=== PATIENT | male | born 1945 | race Native Hawaiian/Other Pacific Islander ===

== ENCOUNTER 2018-03-31 14:24 | Inpatient (IN) | payer OTHER ==
[2018-03-31 14:31] VITALS: BMI 27.7
[2018-03-31 15:26] VITALS: RESP 20
[2018-03-31] MEDS ORDERED: Tuberculin 5 Units/0.1 ml Inj ID ONE (16:08)
--- NOTE | 2018-03-31 17:49 | CP.PCM.HP ---
History of Present Illness - History of Present Illness History of Present Illness: 72 YO M w/ PMH of HTN, GERD, Erectile dysfunction was transfered from [facility] for rehabilitation. Patient had presented to [facility] on after he started feeling unsteady with the room spinining with the feeling he was going to fall. He would have to walk with support and hold on to something to avoid falling. 2 days before symptoms began he had started taking cialis 3-4 hours after he took his blood pressure medication. - He was thoroughly worked up at [facility] and seen by Neurology and ENT. - Had Carotid doppler: Duplex scan did not suggest hemodynamically significant stenosis bilateral - MRI brain w/o contrast: No mass-effect or cytotoxic edema throughout the brain. [id number] age-related neuro degenerative findings are appreciate throughout the cerebrum - Head MRA: Unremarkable - Neck MRA: Unremarkable - Patient states he is feeling better however stills feels unsteady when he walks and requires support. Denies any chest pain, SOB, N/V/D PMD: HTN, GERD, ED, HLD PSH: Cataract surg 2014 Allergy: NKDA FH: Denies SH: 5 cig per day x 30 years, 3 drinks daily Full code Present on Admission - Present on Admission Any Indicators Present on Admission: No Past Patient History - Past Medical History & Family History Past Medical History?: Yes - Past Social History Smoking Status: Light Smoker < 10 Cigarettes Daily - CARDIAC Hx Hypercholesterolemia: Yes Hx Hypertension: Yes Other/Comment: hyperlipidemia - NEUROLOGICAL Hx Neurological Disorder: Yes Hx Dizziness: Yes Hx Vertigo: Yes - HEENT Hx Cataracts: Yes (cataracts sx 2014) - HEMATOLOGICAL/ONCOLOGICAL Hx AIDS: No Hx Human Immunodeficiency Virus (HIV): No - MUSCULOSKELETAL/RHEUMATOLOGICAL Hx Falls: No - GASTROINTESTINAL Hx Gastrointestinal Disorders: Yes Hx Gastroesophageal Reflux: Yes - PSYCHIATRIC Hx Substance Use: No - SURGICAL HISTORY Hx Surgeries: No - ANESTHESIA Hx Anesthesia: No Hx Anesthesia Reactions: No Hx Malignant Hyperthermia: No Meds Allergies/Adverse Reactions: Allergies Allergy/AdvReac Type Severity Reaction Status Date / Time No Known Allergies Allergy Verified 03/31/18 14:30 Physical Exam - Constitutional Appears: No Acute Distress - Head Exam Head Exam: NORMAL INSPECTION - ENT Exam ENT Exam: Mucous Membranes Moist - Neck Exam Neck exam: Positive for: Normal Inspection - Respiratory Exam Respiratory Exam: Clear to Auscultation Bilateral, NORMAL BREATHING PATTERN. absent: Rhonchi, Wheezes - Cardiovascular Exam Cardiovascular Exam: REGULAR RHYTHM, +S1, +S2 - GI/Abdominal Exam GI & Abdominal Exam: Normal Bowel Sounds, Soft. absent: Tenderness - Neurological Exam Neurological exam: Abnormal Gait (unstable gait: Magnetic gait), Alert, CN II- XII Intact, Oriented x3 Additional comments: Became lightheaded while doing [place] however not lateralized to any specific side - DTR 2+ B/L - Motor : 5+ B/U upper and lower extremities - Sensation intact Results - Vital Signs Recent Vital Signs: Last Vital Signs Temp Pulse 87 03/31/18 14:39 Resp 20 03/31/18 14:39 BP Pulse Ox Assessment & Plan - Assessment and Plan (Free Text) Assessment: 72 year old male with a PMHx of HTN, GERD, ED, HLD who is being transfered from [facility] for sub acute rehab for his difficulty with ambulation. 1) Gait impairment most likely secondary to BPPV - Pt had significant relief w/ BPPV tx holland tristan at [facility] - Neuro had recommended patient have outpatient EMG/ Nerve conduction study - PT/OT, Vestibular rehab - Medications: Meclizine 25mg PO BID, Valium 2mg PO Q12H PRN 2) HTN - C/W home meds 3) HLD - Crestor, ASA 4) DVT prophylaxis Lovenox 40 SC
[2018-04-01 06:38] LABS: HEMOGLOBIN 16.2 g/dL (12.0-18.0); MEAN CELL VOLUME 100.5 fl (80.0-94.0); MEAN CORPUSCULAR HEMOGLOBIN 34.8 pg (27.0-31.0); MEAN CORPUSCULAR HGB CONC 34.6 g/dL (33.0-37.0); RBC 4.65 Mil/uL (4.40-5.90); RED CELL DISTRIBUTION WIDTH 12.6 % (11.5-14.5); WHITE BLOOD COUNT 5.9 K/uL (4.8-10.8)
[2018-04-01 06:57] LABS: ALBUMIN 4.4 g/dL (3.5-5.0); CALCIUM 10.1 mg/dL (8.4-10.2)
[2018-04-01] MEDS: Enoxaparin 40 mg Syringe SC SCH (08:05)
[2018-04-01] MEDS ORDERED: VALSARTAN HCTZ PO SCH (09:00)
[2018-04-01 09:29] LABS: T4 9.46 ug/dl (5.5-11.0)
--- NOTE | 2018-04-01 12:25 | CP.PCM.PN ---
Subjective - Date & Time of Evaluation Date of Evaluation: 04/01/18 Time of Evaluation: 09:00 - Subjective Subjective: Patient seen and examined this morning at bedside. NAD, no acute event overnight. Patient reports spinning sensations with postural changes denies any nausea or vomiting. Had BM this morning, tolerating PO, AAOx3. Denies chest pain , palpitations, blurred vision, abdominal pain or urinary symptoms. Objective - Vital Signs/Intake and Output Vital Signs (last 24 hours): Temp Pulse Resp BP Pulse Ox 97.6 F 73 20 121/66 98 04/01/18 08:29 04/01/18 08:29 04/01/18 08:29 04/01/18 08:29 04/01/18 08:29 - Medications Medications: Current Medications Acetaminophen (Tylenol 325mg Tab) 650 mg PO Q6 PRN PRN Reason: Pain, moderate (4-7) Amlodipine Besylate (Norvasc) 5 mg PO DAILY [facility] Last Admin: 04/01/18 08:04 Dose: 5 mg Aspirin (Aspirin Chewable) 81 mg PO DAILY [facility] Last Admin: 04/01/18 08:04 Dose: 81 mg Atorvastatin Calcium (Lipitor) 20 mg PO HS [facility] Last Admin: 03/31/18 21:27 Dose: 20 mg Diazepam (Valium) 2 mg PO Q12 PRN PRN Reason: Dizziness Enoxaparin Sodium (Lovenox) 40 mg SC DAILY [facility] PRN Reason: Protocol Last Admin: 04/01/18 08:05 Dose: 40 mg Hydrochlorothiazide (Microzide) 12.5 mg PO DAILY [facility] Last Admin: 04/01/18 08:04 Dose: 12.5 mg Lactated Ringer's (Lactated Ringer's) 1,000 mls @ 999 mls/hr IV .Q1H1M [facility] Meclizine HCl (Antivert) 25 mg PO BID [facility] Last Admin: 04/01/18 08:04 Dose: 25 mg Nicotine (Nicoderm Cq) 1 patch TD DAILY [facility] Last Admin: 04/01/18 09:50 Dose: 1 patch Valsartan (Diovan) 160 mg PO DAILY [facility] Last Admin: 04/01/18 08:04 Dose: 160 mg - Labs Labs: 04/01/18 05:50 04/01/18 05:50 - Constitutional Appears: No Acute Distress - Head Exam Head Exam: NORMAL INSPECTION - Eye Exam Eye Exam: Normal appearance Pupil Exam: NORMAL ACCOMODATION - ENT Exam ENT Exam: Mucous Membranes Moist - Neck Exam Neck Exam: Normal Inspection - Respiratory Exam Respiratory Exam: Clear to Ausculation Bilateral, NORMAL BREATHING PATTERN - Cardiovascular Exam Cardiovascular Exam: REGULAR RHYTHM, +S1, +S2 - GI/Abdominal Exam GI & Abdominal Exam: Soft, Normal Bowel Sounds. absent: Tenderness - Extremities Exam Extremities Exam: Normal Capillary Refill, Normal Inspection - Back Exam Back Exam: absent: CVA tenderness (L), CVA tenderness (R) - Neurological Exam Neurological Exam: Alert, Awake, CN II-XII Intact, Oriented x3 - Psychiatric Exam Psychiatric exam: Normal Affect - Skin Skin Exam: Dry, Intact, Normal Color, Warm Assessment and Plan - Assessment and Plan (Free Text) Assessment: 72 year old male with a PMHx of HTN, GERD, ED, HLD who is being transfered from [facility] for sub acute rehab for his difficulty with ambulation. Gait impairment most likely secondary to BPPV - Pt had significant relief w/ BPPV tx holland tristan at [facility] - Neuro had recommended patient have outpatient EMG/ Nerve conduction study - PT/OT, Vestibular rehab (with follow up with TCU if it can be done as inpatient) (will follow up with Dr. Sanchez as needed ) - Medications: Meclizine 25mg PO BID, Valium 2mg PO Q12H PRN Elevated LFTs - AST/ALT 87/97 - Possibly related to Valium, will follow up closely HTN - Chronic, Controlled - C/W home meds, Valsartan 160mg daily, Norvasc 5mg daily, HCTZ 12.5mg daily Sub-clinical Hypothyroidism - TSH 6.18, T4 9.46 - Follow up as outpatient HLD - Crestor, ASA DVT prophylaxis - Lovenox 40 SC
[2018-04-01] MEDS: Lactated Ringer's 1,000 ML IV SCH ×5 (13:21→18:41)
[2018-04-02 06:30] LABS: ALB/GLOB RATIO 1.1 (1.0-2.1); ALBUMIN 3.9 g/dL (3.5-5.0); ALT/SGPT 90 U/L (21-72); AST/SGOT 76 U/L (17-59); BLOOD UREA NITROGEN 19 mg/dl (9-20); CALCIUM 9.6 mg/dL (8.4-10.2); GFR AFRICAN-AMERICAN > 60; GFR NON-AFRICAN AMERICAN 60
[2018-04-02] MEDS: Enoxaparin 40 mg Syringe SC SCH (08:26)
--- NOTE | 2018-04-02 14:31 | CP.PCM.PN ---
<Farhad Lorenzo - Last Filed: 04/02/18 14:34> Subjective - Date & Time of Evaluation Date of Evaluation: 04/02/18 Time of Evaluation: 08:30 - Subjective Subjective: Patient seen and examined this morning. NAD, no issues overnight, patient reports some dizziness with movements but improved significantly. Denies f/c/n/v /d/c. No chest pain, SOB, abdominal pain or urinary symptoms. Ambulating in room , tolerating PO diet. Objective - Vital Signs/Intake and Output Vital Signs (last 24 hours): Temp Pulse Resp BP Pulse Ox 97.5 F L 73 20 118/66 97 04/02/18 09:08 04/02/18 09:08 04/02/18 09:08 04/02/18 09:08 04/02/18 09:08 - Medications Medications: Current Medications Acetaminophen (Tylenol 325mg Tab) 650 mg PO Q6 PRN PRN Reason: Pain, moderate (4-7) Amlodipine Besylate (Norvasc) 5 mg PO DAILY [facility] Last Admin: 04/02/18 08:34 Dose: 5 mg Aspirin (Aspirin Chewable) 81 mg PO DAILY [facility] Last Admin: 04/02/18 08:26 Dose: 81 mg Atorvastatin Calcium (Lipitor) 20 mg PO HS [facility] Last Admin: 04/01/18 21:20 Dose: 20 mg Diazepam (Valium) 2 mg PO Q12 PRN PRN Reason: Dizziness Docusate Sodium (Colace) 100 mg PO BID [facility] Enoxaparin Sodium (Lovenox) 40 mg SC DAILY [facility] PRN Reason: Protocol Last Admin: 04/02/18 08:26 Dose: 40 mg Hydrochlorothiazide (Microzide) 12.5 mg PO DAILY [facility] Last Admin: 04/02/18 08:26 Dose: 12.5 mg Meclizine HCl (Antivert) 25 mg PO BID [facility] Last Admin: 04/02/18 08:25 Dose: 25 mg Nicotine (Nicoderm Cq) 1 patch TD DAILY [facility] Last Admin: 04/02/18 08:26 Dose: 1 patch Valsartan (Diovan) 160 mg PO DAILY [facility] Last Admin: 04/02/18 08:26 Dose: 160 mg - Labs Labs: 04/01/18 05:50 04/02/18 05:45 - Constitutional Appears: No Acute Distress - Head Exam Head Exam: NORMAL INSPECTION - Eye Exam Eye Exam: Normal appearance - ENT Exam ENT Exam: Mucous Membranes Moist - Respiratory Exam Respiratory Exam: Clear to Ausculation Bilateral, NORMAL BREATHING PATTERN - Cardiovascular Exam Cardiovascular Exam: REGULAR RHYTHM - GI/Abdominal Exam GI & Abdominal Exam: Soft, Normal Bowel Sounds - Extremities Exam Extremities Exam: Full ROM - Neurological Exam Neurological Exam: Alert, Awake, Oriented x3 - Psychiatric Exam Psychiatric exam: Normal Affect Assessment and Plan - Assessment and Plan (Free Text) Assessment: 72 year old male with a PMHx of HTN, GERD, ED, HLD who is being transferred from [place] for sub acute rehab for his difficulty with ambulation. Gait impairment most likely secondary to BPPV - Pt had significant relief w/ BPP[facility] - Neuro had recommended patient have outpatient EMG/ Nerve conduction study - PT/OT, Vestibular rehab (with follow up with TCU if it can be done as inpatient) (will follow up with Dr. Sanchez as needed ) - Dr. Mo consulted for EMG, will follow recommendation - Medications: Meclizine 25mg PO BID, Valium 2mg PO Q12H PRN - Follow up HIV and RPR Elevated LFTs - AST/ALT 76/90 - Improved - Possibly related to Valium, will follow up closely HTN - Chronic, Controlled - C/W home meds, Valsartan 160mg daily, Norvasc 5mg daily, HCTZ 12.5mg daily Sub-clinical Hypothyroidism - TSH 6.18, T4 9.46 - Follow up as outpatient HLD - Crestor, ASA DVT prophylaxis - Lovenox 40 SC <Angeline Alvarez - Last Filed: 04/03/18 07:58> Objective - Vital Signs/Intake and Output Vital Signs (last 24 hours): Temp Pulse Resp BP Pulse Ox 98.1 F 85 20 118/70 96 04/02/18 19:29 04/02/18 19:29 04/02/18 19:29 04/02/18 19:29 04/02/18 19:29 - Medications Medications: Current Medications Acetaminophen (Tylenol 325mg Tab) 650 mg PO Q6 PRN PRN Reason: Pain, moderate (4-7) Amlodipine Besylate (Norvasc) 5 mg PO DAILY [facility] Last Admin: 04/02/18 08:34 Dose: 5 mg Aspirin (Aspirin Chewable) 81 mg PO DAILY [facility] Last Admin: 04/02/18 08:26 Dose: 81 mg Atorvastatin Calcium (Lipitor) 20 mg PO HS [facility] Last Admin: 04/02/18 21:11 Dose: 20 mg Diazepam (Valium) 2 mg PO Q12 PRN PRN Reason: Dizziness Last Admin: 04/02/18 21:12 Dose: 2 mg Docusate Sodium (Colace) 100 mg PO BID [facility] Last Admin: 04/02/18 17:14 Dose: 100 mg Enoxaparin Sodium (Lovenox) 40 mg SC DAILY [facility] PRN Reason: Protocol Last Admin: 04/02/18 08:26 Dose: 40 mg Hydrochlorothiazide (Microzide) 12.5 mg PO DAILY [facility] Last Admin: 04/02/18 08:26 Dose: 12.5 mg Meclizine HCl (Antivert) 25 mg PO BID [facility] Last Admin: 04/02/18 17:12 Dose: 25 mg Nicotine (Nicoderm Cq) 1 patch TD DAILY [facility] Last Admin: 04/02/18 08:26 Dose: 1 patch Valsartan (Diovan) 160 mg PO DAILY [facility] Last Admin: 04/02/18 08:26 Dose: 160 mg - Labs Labs: 04/01/18 05:50 04/02/18 05:45 Attending/Attestation - Attestation I have personally seen and examined this patient.: Yes I have fully participated in the care of the patient.: Yes I have reviewed all pertinent clinical information, including history, physical exam and plan: Yes
--- NOTE | 2018-04-02 19:20 | CP.PCM.CON ---
History of Present Illness - History of Present Illness History of Present Illness: Dr Mo PMR consultation on Milena Baker, born 1945 who has been admitted with gait and balance abnormalities. He notes that this has been recent but on further discussion has been long standing. He is a heavy alcoholic , smokes only 4 cigarettes a day. He denies any numbness in the lower extremities. Sensation to light touch, vibration and proprioception are intact in the lower extremities. There is no strength deficit. There is a negative nystagmus. There is no pronator drift. There is normal tone with no upper motor neuron signs. No atrophy noted. At this point an emg/ncs may be positive given the substantial history of ETOH abuse but will not alter the diagnosis. He does have dizziness at times and it appears that the gait imbalance is not related to the lower extremities regardless of the emg/ncs findings. It is not clear when he will be discharged and I will try to get the time to bring my machine to the hospital and get the procedure performed but I cannot say exactly when that will be done. Neuro is recommending outpatient study. I am happy to have him booked in my office for the procedure if I cannot make it here for the procedure but will try and schedule this in my day. Thank you Past Patient History - Past Medical History & Family History Past Medical History?: Yes - Past Social History Smoking Status: Light Smoker < 10 Cigarettes Daily - CARDIAC Hx Hypercholesterolemia: Yes Hx Hypertension: Yes - NEUROLOGICAL Hx Neurological Disorder: Yes Hx Dizziness: Yes Hx Vertigo: Yes - HEENT Hx Cataracts: Yes (cataracts sx 2014) - HEMATOLOGICAL/ONCOLOGICAL Hx AIDS: No Hx Human Immunodeficiency Virus (HIV): No - MUSCULOSKELETAL/RHEUMATOLOGICAL Hx Falls: No - GASTROINTESTINAL Hx Gastrointestinal Disorders: Yes Hx Gastroesophageal Reflux: Yes - PSYCHIATRIC Hx Substance Use: No - SURGICAL HISTORY Hx Surgeries: No - ANESTHESIA Hx Anesthesia: No Hx Anesthesia Reactions: No Hx Malignant Hyperthermia: No Meds Allergies/Adverse Reactions: Allergies Allergy/AdvReac Type Severity Reaction Status Date / Time No Known Allergies Allergy Verified 03/31/18 14:30 - Medications Medications: Current Medications Acetaminophen (Tylenol 325mg Tab) 650 mg PO Q6 PRN PRN Reason: Pain, moderate (4-7) Amlodipine Besylate (Norvasc) 5 mg PO DAILY [facility] Last Admin: 04/02/18 08:34 Dose: 5 mg Aspirin (Aspirin Chewable) 81 mg PO DAILY [facility] Last Admin: 04/02/18 08:26 Dose: 81 mg Atorvastatin Calcium (Lipitor) 20 mg PO HS [facility] Last Admin: 04/01/18 21:20 Dose: 20 mg Diazepam (Valium) 2 mg PO Q12 PRN PRN Reason: Dizziness Docusate Sodium (Colace) 100 mg PO BID [facility] Last Admin: 04/02/18 17:14 Dose: 100 mg Enoxaparin Sodium (Lovenox) 40 mg SC DAILY [facility] PRN Reason: Protocol Last Admin: 04/02/18 08:26 Dose: 40 mg Hydrochlorothiazide (Microzide) 12.5 mg PO DAILY [facility] Last Admin: 04/02/18 08:26 Dose: 12.5 mg Meclizine HCl (Antivert) 25 mg PO BID [facility] Last Admin: 04/02/18 17:12 Dose: 25 mg Nicotine (Nicoderm Cq) 1 patch TD DAILY [facility] Last Admin: 04/02/18 08:26 Dose: 1 patch Valsartan (Diovan) 160 mg PO DAILY [facility] Last Admin: 04/02/18 08:26 Dose: 160 mg Results - Vital Signs Recent Vital Signs: Last Vital Signs Temp 97.5 F L 04/02/18 15:56 Pulse 90 04/02/18 15:56 Resp 20 04/02/18 15:56 BP 123/62 04/02/18 15:56 Pulse Ox 97 04/02/18 15:56 - Labs Result Diagrams: 04/01/18 05:50 04/02/18 05:45 Labs: Laboratory Results - last 24 hr 04/02/18 04/02/18 05:45 05:45 Sodium 141 Potassium 4.1 Chloride 104 Carbon Dioxide 28 Anion Gap 13 BUN 19 Creatinine 1.2 Est GFR ( Amer) > 60 Est GFR (Non-Af Amer) 60 Random Glucose 108 Calcium 9.6 Total Bilirubin 1.1 AST 76 H ALT 90 H Alkaline Phosphatase 48 Total Protein 7.5 Albumin 3.9 Globulin 3.6 Albumin/Globulin Ratio 1.1 RPR Nonreactive
[2018-04-03] MEDS: Enoxaparin 40 mg Syringe SC SCH (09:02)
[2018-04-03] MEDS ORDERED: Sodium Chloride 0.9% 1,000 ML IV SCH (17:30)
[2018-04-04 06:41] LABS: HEMOGLOBIN 14.2 g/dL (12.0-18.0); MEAN CELL VOLUME 99.9 fl (80.0-94.0); MEAN CORPUSCULAR HEMOGLOBIN 34.3 pg (27.0-31.0); MEAN CORPUSCULAR HGB CONC 34.3 g/dL (33.0-37.0); RBC 4.13 Mil/uL (4.40-5.90); RED CELL DISTRIBUTION WIDTH 12.3 % (11.5-14.5); WHITE BLOOD COUNT 5.6 K/uL (4.8-10.8)
[2018-04-04 07:27] LABS: ALB/GLOB RATIO 1.1 (1.0-2.1); BILIRUBIN,DIRECT 0.1 mg/ml (0.0-0.4)
[2018-04-04] MEDS: Enoxaparin 40 mg Syringe SC SCH (08:56)
[2018-04-05] MEDS: Enoxaparin 40 mg Syringe SC SCH (09:16)
--- NOTE | 2018-04-05 09:35 | CP.PCM.PN ---
<Farhad Lorenzo - Last Filed: 04/05/18 12:53> Subjective - Date & Time of Evaluation Date of Evaluation: 04/05/18 Time of Evaluation: 07:45 - Subjective Subjective: Patient seen and examined this morning, NAD. Patient reports dizziness in morning when he gets out of the bed, but improved significantly as per patient. patient is ambulating in room w/o any assistance, denies any chest pain, palpitations, blurred vision, SOB, abdominal pain, urinary symptoms or f/c/n/v/ d. - Patient to follow EMG, nerve conduction study or Vestibular therapy No orthostatic hypotension - On chair: 126/61, HR 87 - Standin/68, HR 96 Objective - Vital Signs/Intake and Output Vital Signs (last 24 hours): Temp Pulse Resp BP Pulse Ox 97.9 F 87 20 132/72 100 04/05/18 08:22 04/05/18 09:15 04/05/18 08:22 04/05/18 09:15 04/05/18 08:22 - Medications Medications: Current Medications Acetaminophen (Tylenol 325mg Tab) 650 mg PO Q6 PRN PRN Reason: Pain, moderate (4-7) Amlodipine Besylate (Norvasc) 5 mg PO DAILY [facility] Last Admin: 04/05/18 09:15 Dose: 5 mg Aspirin (Aspirin Chewable) 81 mg PO DAILY [facility] Last Admin: 04/05/18 09:16 Dose: 81 mg Atorvastatin Calcium (Lipitor) 20 mg PO HS [facility] Last Admin: 04/04/18 21:24 Dose: 20 mg Diazepam (Valium) 2 mg PO Q12 PRN PRN Reason: Dizziness Last Admin: 04/04/18 21:24 Dose: 2 mg Docusate Sodium (Colace) 100 mg PO BID [facility] Last Admin: 04/05/18 09:17 Dose: 100 mg Enoxaparin Sodium (Lovenox) 40 mg SC DAILY [facility] PRN Reason: Protocol Last Admin: 04/05/18 09:16 Dose: 40 mg Hydrochlorothiazide (Microzide) 12.5 mg PO DAILY [facility] Last Admin: 04/05/18 09:16 Dose: 12.5 mg Meclizine HCl (Antivert) 25 mg PO BID [facility] Last Admin: 04/05/18 09:15 Dose: 25 mg Nicotine (Nicoderm Cq) 1 patch TD DAILY [facility] Last Admin: 04/05/18 09:16 Dose: 1 patch Valsartan (Diovan) 160 mg PO DAILY [facility] Last Admin: 04/05/18 09:15 Dose: 160 mg - Labs Labs: 04/04/18 06:20 04/02/18 05:45 - Constitutional Appears: No Acute Distress - Head Exam Head Exam: NORMAL INSPECTION - Eye Exam Eye Exam: Normal appearance - ENT Exam ENT Exam: Mucous Membranes Moist - Neck Exam Neck Exam: Normal Inspection - Respiratory Exam Respiratory Exam: Clear to Ausculation Bilateral, NORMAL BREATHING PATTERN - Cardiovascular Exam Cardiovascular Exam: REGULAR RHYTHM, +S1, +S2 - GI/Abdominal Exam GI & Abdominal Exam: Soft, Normal Bowel Sounds. absent: Tenderness, Rebound - Extremities Exam Extremities Exam: Full ROM, Normal Capillary Refill, Normal Inspection. absent : Pedal Edema, Tenderness - Back Exam Back Exam: NORMAL INSPECTION. absent: CVA tenderness (L), CVA tenderness (R) - Neurological Exam Neurological Exam: Alert, Awake, CN II-XII Intact, Oriented x3, Reflexes Normal - Psychiatric Exam Psychiatric exam: Normal Affect - Skin Skin Exam: Normal Color Assessment and Plan - Assessment and Plan (Free Text) Assessment: A/P: 72 year old male with a PMHx of HTN, GERD, ED, HLD who is being [facility] for his difficulty with ambulation/ unsteady gait. Gait impairment most likely secondary to BPPV - Improved - Pt had significant relief w/ BPPV tx holland tristan at [facility] - Neuro had recommended patient have outpatient EMG/ Nerve conduction study - PT/OT, Vestibular rehab (with follow up with TCU if it can be done as inpatient) (will follow up with Dr. Sanchez as needed ) - Dr. Mo consulted for EMG, inpatient vs outpatient therapy - Negative HIV and RPR - Medications: Meclizine 25mg PO BID, Valium 2mg PO Q12H PRN - Continue management as per rehab/PT team Elevated LFTs - Improved - Possibly related to Valium, will follow up closely HTN - Chronic, Controlled - C/W home meds, Valsartan 160mg daily, Norvasc 5mg daily, HCTZ 12.5mg daily Sub-clinical Hypothyroidism - TSH 6.18, T4 9.46 - Follow up as outpatient HLD - ASA DVT prophylaxis - Lovenox 40 SC daily <Angeline Alvarez - Last Filed: 04/05/18 13:07> Objective - Vital Signs/Intake and Output Vital Signs (last 24 hours): Temp Pulse Resp BP Pulse Ox 97.9 F 87 20 132/72 100 04/05/18 08:22 04/05/18 09:15 04/05/18 08:22 04/05/18 09:15 04/05/18 08:22 - Medications Medications: Current Medications Acetaminophen (Tylenol 325mg Tab) 650 mg PO Q6 PRN PRN Reason: Pain, moderate (4-7) Amlodipine Besylate (Norvasc) 5 mg PO DAILY [facility] Last Admin: 04/05/18 09:15 Dose: 5 mg Aspirin (Aspirin Chewable) 81 mg PO DAILY [facility] Last Admin: 04/05/18 09:16 Dose: 81 mg Atorvastatin Calcium (Lipitor) 20 mg PO HS [facility] Last Admin: 04/04/18 21:24 Dose: 20 mg Diazepam (Valium) 2 mg PO Q12 PRN PRN Reason: Dizziness Last Admin: 04/04/18 21:24 Dose: 2 mg Docusate Sodium (Colace) 100 mg PO BID [facility] Last Admin: 04/05/18 09:17 Dose: 100 mg Enoxaparin Sodium (Lovenox) 40 mg SC DAILY [facility] PRN Reason: Protocol Last Admin: 04/05/18 09:16 Dose: 40 mg Hydrochlorothiazide (Microzide) 12.5 mg PO DAILY [facility] Last Admin: 04/05/18 09:16 Dose: 12.5 mg Meclizine HCl (Antivert) 25 mg PO BID [facility] Last Admin: 04/05/18 09:15 Dose: 25 mg Nicotine (Nicoderm Cq) 1 patch TD DAILY [facility] Last Admin: 04/05/18 09:16 Dose: 1 patch Valsartan (Diovan) 160 mg PO DAILY [facility] Last Admin: 04/05/18 09:15 Dose: 160 mg - Labs Labs: 04/04/18 06:20 04/02/18 05:45 Attending/Attestation - Attestation I have personally seen and examined this patient.: Yes I have fully participated in the care of the patient.: Yes I have reviewed all pertinent clinical information, including history, physical exam and plan: Yes
[2018-04-06] MEDS: Enoxaparin 40 mg Syringe SC SCH (09:01)
[2018-04-06] MEDS ORDERED: Alum-Mag Hydrox-Simethicone Susp (30 mL) PO ONE (19:39)
[2018-04-07 09:45] VITALS: TEMP 98.9; O2SAT 97
[2018-04-07 09:53] VITALS: BP 131/67; PULSE 91
--- NOTE | 2018-04-07 11:26 | CP.PCM.DIS ---
<Jesús Brody - Last Filed: 04/07/18 11:26> Provider - Provider Date of Admission: 03/31/18 14:31 Attending physician: Aileen Beck MD Time Spent in preparation of Discharge (in minutes): 35 Diagnosis - Discharge Diagnosis (1) Lightheadedness Status: Acute Hospital Course - Lab Results Lab Results: Most Recent Lab Values WBC 5.6 K/uL (4.8-10.8) 04/04/18 06:20 RBC 4.13 Mil/uL (4.40-5.90) L 04/04/18 06:20 Hgb 14.2 g/dL (12.0-18.0) D 04/04/18 06:20 Hct 41.3 % (35.0-51.0) 04/04/18 06:20 MCV 99.9 fl (80.0-94.0) H 04/04/18 06:20 MCH 34.3 pg (27.0-31.0) H 04/04/18 06:20 MCHC 34.3 g/dL (33.0-37.0) 04/04/18 06:20 RDW 12.3 % (11.5-14.5) 04/04/18 06:20 Plt Count 176 K/uL (130-400) 04/04/18 06:20 Sodium 141 mmol/l (132-148) 04/02/18 05:45 Potassium 4.1 MMOL/L (3.6-5.0) 04/02/18 05:45 Chloride 104 mmol/L (98-107) 04/02/18 05:45 Carbon Dioxide 28 mmol/L (22-30) 04/02/18 05:45 Anion Gap 13 (10-20) 04/02/18 05:45 BUN 19 mg/dl (9-20) 04/02/18 05:45 Creatinine 1.2 mg/dl (0.8-1.5) 04/02/18 05:45 Est GFR ( Amer) > 60 04/02/18 05:45 Est GFR (Non-Af Amer) 60 04/02/18 05:45 Random Glucose 108 mg/dL (75-110) 04/02/18 05:45 Calcium 9.6 mg/dL (8.4-10.2) 04/02/18 05:45 Phosphorus 4.3 mg/dl (2.5-4.5) 04/01/18 08:37 Magnesium 1.9 MG/DL (1.6-2.3) 04/01/18 08:37 Total Bilirubin 1.1 mg/dl (0.2-1.3) 04/04/18 06:20 Direct Bilirubin 0.1 mg/ml (0.0-0.4) 04/04/18 06:20 AST 57 U/L (17-59) 04/04/18 06:20 ALT 92 U/L (21-72) H 04/04/18 06:20 Alkaline Phosphatase 46 U/L (38-126) 04/04/18 06:20 Total Protein 7.6 G/DL (6.3-8.2) 04/04/18 06:20 Albumin 4.0 g/dL (3.5-5.0) 04/04/18 06:20 Globulin 3.6 gm/dL (2.2-3.9) 04/04/18 06:20 Albumin/Globulin Ratio 1.1 (1.0-2.1) 04/04/18 06:20 Vitamin B12 995 pg/mL (239-931) H 04/01/18 05:50 Thyroxine (T4) 9.46 ug/dl (5.5-11.0) 04/01/18 08:37 TSH 3rd Generation 6.18 mIU/ML (0.46-4.68) H 04/01/18 08:37 RPR Nonreactive (NONREACTIVE) 04/02/18 05:45 HIV 1&2 Ag/Ab, 4th Gen Nonreactive (Nonreactive) 04/02/18 05:45 - Hospital Course Hospital Course: 72 year old male with a PMHx of HTN, GERD, ED, HLD who was transferred from [facility] [place] for sub acute rehab for his difficulty with ambulation/unsteady gait. Gait impairment most likely secondary to BPPV - Pt had significant relief w/ BPPV tx holland tristan at [facility] - Neuro had recommended patient have outpatient EMG/ Nerve conduction study ( scripts provided) - PT/OT, Vestibular rehab will follow up with Dr. Sanchez as needed - Dr. Mo consulted for EMG, inpatient vs outpatient therapy - Medications given Meclizine 25mg PO BID, Valium 2mg PO Q12H PRN Sub-clinical Hypothyroidism - TSH 6.18, T4 9.46 - Follow up as outpatient after an uneventful hospital stay, the patient was discharged home in stable condition Discharge Exam - Head Exam Head Exam: NORMAL INSPECTION - Eye Exam Eye Exam: EOMI, Normal appearance Pupil Exam: NORMAL ACCOMODATION - ENT Exam ENT Exam: Normal Exam - Respiratory Exam Respiratory Exam: Clear to PA & Lateral, NORMAL BREATHING PATTERN, UNREMARKABLE - Cardiovascular Exam Cardiovascular Exam: REGULAR RHYTHM, RRR, +S1, +S2. absent: JVD, Systolic Murmur - GI/Abdominal Exam GI & Abdominal Exam: Normal Bowel Sounds, Unremarkable - Extremities Exam Extremities exam: full ROM, normal capillary refill, normal inspection, pedal pulses present - Neurological Exam Neurological exam: Alert, CN II-XII Intact, Oriented x3, Reflexes Normal - Psychiatric Exam Psychiatric exam: Normal Affect, Normal Mood - Skin Skin Exam: Dry, Intact, Normal Color Discharge Plan - Discharge Medications Prescriptions: Nicotine 7 mg/24 hr [Nicoderm CQ] 1 patch TD DAILY #7 patch - Follow Up Plan Condition: GOOD Disposition: HOME/ ROUTINE Instructions: Vertigo (a Type of Dizziness) (DC), Quitting Smoking Additional Instructions: Rx for PT eval and Vestibular therapy 3x a week for 4 weeks given Rx for EMG study as outpatient given Referral to Dr. Sanchez as outpatient Referrals: Pablo Sanchez MD [Staff Provider] - <Angeline Alvarez - Last Filed: 04/08/18 08:09> Provider - Provider Date of Admission: 03/31/18 14:31 Attending physician: Aileen Beck MD Hospital Course - Lab Results Lab Results: Most Recent Lab Values WBC 5.6 K/uL (4.8-10.8) 04/04/18 06:20 RBC 4.13 Mil/uL (4.40-5.90) L 04/04/18 06:20 Hgb 14.2 g/dL (12.0-18.0) D 04/04/18 06:20 Hct 41.3 % (35.0-51.0) 04/04/18 06:20 MCV 99.9 fl (80.0-94.0) H 04/04/18 06:20 MCH 34.3 pg (27.0-31.0) H 04/04/18 06:20 MCHC 34.3 g/dL (33.0-37.0) 04/04/18 06:20 RDW 12.3 % (11.5-14.5) 04/04/18 06:20 Plt Count 176 K/uL (130-400) 04/04/18 06:20 Sodium 141 mmol/l (132-148) 04/02/18 05:45 Potassium 4.1 MMOL/L (3.6-5.0) 04/02/18 05:45 Chloride 104 mmol/L (98-107) 04/02/18 05:45 Carbon Dioxide 28 mmol/L (22-30) 04/02/18 05:45 Anion Gap 13 (10-20) 04/02/18 05:45 BUN 19 mg/dl (9-20) 04/02/18 05:45 Creatinine 1.2 mg/dl (0.8-1.5) 04/02/18 05:45 Est GFR ( Amer) > 60 04/02/18 05:45 Est GFR (Non-Af Amer) 60 04/02/18 05:45 Random Glucose 108 mg/dL (75-110) 04/02/18 05:45 Calcium 9.6 mg/dL (8.4-10.2) 04/02/18 05:45 Phosphorus 4.3 mg/dl (2.5-4.5) 04/01/18 08:37 Magnesium 1.9 MG/DL (1.6-2.3) 04/01/18 08:37 Total Bilirubin 1.1 mg/dl (0.2-1.3) 04/04/18 06:20 Direct Bilirubin 0.1 mg/ml (0.0-0.4) 04/04/18 06:20 AST 57 U/L (17-59) 04/04/18 06:20 ALT 92 U/L (21-72) H 04/04/18 06:20 Alkaline Phosphatase 46 U/L (38-126) 04/04/18 06:20 Total Protein 7.6 G/DL (6.3-8.2) 04/04/18 06:20 Albumin 4.0 g/dL (3.5-5.0) 04/04/18 06:20 Globulin 3.6 gm/dL (2.2-3.9) 04/04/18 06:20 Albumin/Globulin Ratio 1.1 (1.0-2.1) 04/04/18 06:20 Vitamin B12 995 pg/mL (239-931) H 04/01/18 05:50 Thyroxine (T4) 9.46 ug/dl (5.5-11.0) 04/01/18 08:37 TSH 3rd Generation 6.18 mIU/ML (0.46-4.68) H 04/01/18 08:37 RPR Nonreactive (NONREACTIVE) 04/02/18 05:45 HIV 1&2 Ag/Ab, 4th Gen Nonreactive (Nonreactive) 04/02/18 05:45 Attending/Attestation - Attestation I have personally seen and examined this patient.: Yes I have fully participated in the care of the patient.: Yes I have reviewed all pertinent clinical information, including history, physical exam and plan: Yes
== END 2018-04-07 14:20 | disposition home or self-care (01) | DRG 149 ==
LOC: H.TCU 14:31
PROVIDERS: ADMIT Family Medicine; ATTEND Family Medicine
PROC: F08Z1FZ Dressing Techniques Treatment using Assistive, Adaptive, Supportive or Protective Equipment (ICD-10-PCS; principal; 2018-03-31)
PROC: F08Z0FZ Bathing/Showering Techniques Treatment using Assistive, Adaptive, Supportive or Protective Equipment (ICD-10-PCS; 2018-03-31)
PROC: F07Z9FZ Gait Training/Functional Ambulation Treatment using Assistive, Adaptive, Supportive or Protective Equipment (ICD-10-PCS; 2018-03-31)
PROC: F07Z8FZ Transfer Training Treatment using Assistive, Adaptive, Supportive or Protective Equipment (ICD-10-PCS; 2018-03-31)
PROC: F07Z5ZZ Bed Mobility Treatment (ICD-10-PCS; 2018-03-31)
PROC: F07L6ZZ Therapeutic Exercise Treatment of Musculoskeletal System - Lower Back / Lower Extremity (ICD-10-PCS; 2018-03-31)
PROC: F07K6ZZ Therapeutic Exercise Treatment of Musculoskeletal System - Upper Back / Upper Extremity (ICD-10-PCS; 2018-03-31)
DX: H81.10 Benign paroxysmal vertigo, unspecified ear (principal); I10 Essential (primary) hypertension; K21.9 Gastro-esophageal reflux disease without esophagitis; E78.00 Pure hypercholesterolemia, unspecified; E78.5 Hyperlipidemia, unspecified; F17.210 Nicotine dependence, cigarettes, uncomplicated; N52.9 Male erectile dysfunction, unspecified; R26.89 Other abnormalities of gait and mobility; R79.89 Other specified abnormal findings of blood chemistry; E02 Subclinical iodine-deficiency hypothyroidism; F10.10 Alcohol abuse, uncomplicated